=== PATIENT | female | born 1985 | race Caucasian/White ===

== ENCOUNTER → 2021-09-26 | Outpatient (CLI) | payer BC ==
[~2021-09-26] MED LIST: CARVEDILOL3.125 MG PO; NORETHINDRONE0.35 MG PO
[2021-09-26 09:14] LABS: RED BLOOD COUNT 4.17 M/UL (4.00-5.10); WHITE BLOOD COUNT 9.9 K/UL (4.5-11.0)
[2021-09-26 09:17] LABS: HEMOGLOBIN 6.6 gm/dl (12.3-15.3)
[2021-09-26 09:46] LABS: BUN/CREATININE RATIO 12 (0-10)
== END ==
LOC: OPSV2 07:58
PROVIDERS: Obstetrics & Gynecology
DX: Z01.812 Encounter for preprocedural laboratory examination (principal); N93.9 Abnormal uterine and vaginal bleeding, unspecified; Z88.1 Allergy status to other antibiotic agents
CPT/HCPCS: 80053; 81001; 85025

== ENCOUNTER → 2021-09-26 | Outpatient (CLI) | payer BC | LOC: LAB 11:41 | DX: N92.0 Excessive and frequent menstruation with regular cycle (principal) | CPT/HCPCS: 36415; 86850; 86900; 86901; 86920; P9016 ==

== ENCOUNTER → 2021-09-27 | Outpatient (CLI) | payer BC ==
[~2021-09-27] MED LIST changes: +HYDROCODON-ACE1 EAC4 PO; +IBU600 MG PO
== END ==
LOC: OPSV 09:00
DX: D50.9 Iron deficiency anemia, unspecified (principal); N92.0 Excessive and frequent menstruation with regular cycle
CPT/HCPCS: 36430; J7050; P9016

== ENCOUNTER → 2021-10-02 | Day surgery (SDC) | payer BC ==
[2021-10-02 11:16] LABS: HEMOGLOBIN 8.2 gm/dl (12.3-15.3); RED BLOOD COUNT 4.48 M/UL (4.00-5.10); WHITE BLOOD COUNT 10.5 K/UL (4.5-11.0)
== END | disposition home or self-care (01) ==
LOC: OR 07:06
PROVIDERS: Obstetrics & Gynecology
DX: N84.0 Polyp of corpus uteri (principal); N80.0 Endometriosis of uterus; D64.9 Anemia, unspecified; I10 Essential (primary) hypertension; Z88.1 Allergy status to other antibiotic agents
CPT/HCPCS: 84703; 85025; 93005; J1100; J1885; J2001; J2250; J2405; J2704; J2795; J3010